=== PATIENT | female | born 1965 | race African-American/Black ===

== ENCOUNTER 2017-11-11 09:20 | Outpatient (CLI) | payer OTHER | END 2017-11-11 09:21 | disposition home or self-care (01) | LOC: BICMAMMO 09:20 | PROVIDERS: ATTEND Family Medicine | DX: Z12.31 Encounter for screening mammogram for malignant neoplasm of breast (principal) | CPT/HCPCS: 77067 ==

== ENCOUNTER 2017-11-13 07:17 | Outpatient (CLI) | payer OTHER | END 2017-11-13 07:18 | disposition home or self-care (01) | LOC: BICULT 07:17 | PROVIDERS: ATTEND Family Medicine | DX: R10.2 Pelvic and perineal pain (principal); Z90.710 Acquired absence of both cervix and uterus | CPT/HCPCS: 76856 ==

== ENCOUNTER 2018-11-07 11:15 | Emergency (ER) | payer OTHER | END 2018-11-07 12:20 | disposition home or self-care (01) | LOC: ERS 11:15 | DX: J06.9 Acute upper respiratory infection, unspecified (principal); F20.9 Schizophrenia, unspecified; F17.210 Nicotine dependence, cigarettes, uncomplicated; I10 Essential (primary) hypertension; Z79.899 Other long term (current) drug therapy | CPT/HCPCS: 99283 ==

== ENCOUNTER 2018-12-18 08:38 | Outpatient (CLI) | payer OTHER ==
--- NOTE | 2018-12-18 09:10 | MMO ---
Bilateral MAMMO Bilat Screen [facility]DI. CLINICAL HISTORY: Patient is 53 years old and is seen for screening. The patient has no family history of breast cancer. The patient has no personal history of cancer. VIEWS: The views performed were: bilateral craniocaudal and bilateral mediolateral oblique. FILMS COMPARED: The present examination has been compared to prior imaging studies performed at [facility] on 09/10/2016 and 11/11/2017, and at [facility] on 06/25/2013, 08/03/2014 and 09/09/2015. This study has been interpreted with the assistance of computer-aided detection. MAMMOGRAM FINDINGS: There are scattered fibroglandular densities. There is a stable nodule seen in the left breast. There are no suspicious masses, suspicious calcifications, or new areas of architectural distortion. IMPRESSION: THERE IS NO MAMMOGRAPHIC EVIDENCE OF MALIGNANCY. A ROUTINE FOLLOW-UP MAMMOGRAM IN 1 YEAR IS RECOMMENDED. ACR BI-RADS Category 2 - Benign finding MAMMOGRAPHY NOTE: 1. A negative mammogram report should not delay a biopsy if a dominant of clinically suspicious mass is present. 2. Approximately 10% to 15% of breast cancers are not detected by mammography. 3. Adenosis and dense breasts may obscure an underlying neoplasm.
== END 2018-12-18 08:39 | disposition home or self-care (01) ==
LOC: BICMAMMO 08:38
PROVIDERS: ATTEND Family Medicine
DX: Z12.31 Encounter for screening mammogram for malignant neoplasm of breast (principal)
CPT/HCPCS: 77067

== ENCOUNTER 2019-02-02 12:56 | Emergency (ER) | payer OTHER ==
[2019-02-02] MEDS ORDERED: Acetaminophen 325 MG TAB ONE (13:31)
--- NOTE | 2019-02-02 14:00 | RAD ---
Exam:3 views right shoulder HISTORY: Pain. Fall. COMPARISON: None FINDINGS: Glenohumeral joint spaces preserved. No fracture or dislocation. Visualized ribs are intact . There are degenerative changes in the acromioclavicular joint space. Small subacromial spur is noted. Sclerosis of the greater tuberosity is noted. IMPRESSION: 1. No fracture or dislocation. 2. Subacromial spur with sclerosis involving the greater tuberosity. MRI if there is concern for rota tor cuff impingement.
== END 2019-02-02 16:25 | disposition home or self-care (01) ==
LOC: ERS 12:56
DX: M25.511 Pain in right shoulder (principal); F17.210 Nicotine dependence, cigarettes, uncomplicated; F20.9 Schizophrenia, unspecified

== ENCOUNTER 2021-01-04 10:13 | Outpatient (CLI) | payer OTHER | END 2021-01-04 10:14 | disposition home or self-care (01) | LOC: BICMAMMO 10:13 | PROVIDERS: ATTEND Family Medicine | DX: Z12.31 Encounter for screening mammogram for malignant neoplasm of breast (principal) | CPT/HCPCS: 77067 ==

== ENCOUNTER 2021-05-25 09:15 | Emergency (ER) | payer OTHER ==
[2021-05-25 09:52] LABS: #Eosinphils 0.1 thou/uL (0.0-0.7); #Lymphocytes 1.7 thou/uL (1.20-3.40); #Monocytes 0.4 thou/uL (0.11-0.59); #Neutrophils 3.5 thou/uL (1.40-6.50); %Basophils 0.5 % (0.0-1.0); %Lymphocytes 30.7 % (21.0-51.0); %Monocytes 6.8 % (0.0-10.0); Hemoglobin 12.9 g/dL (12.0-16.0); Mean Corpuscular HGB CONC 33.1 g/dL (32.0-36.0); Mean Corpuscular Hemoglobin 29.3 pg (27.0-31.0); Mean Corpuscular Volume 88.4 fL (78.0-98.0); Mean Platelet Volume 7.5 fL (7.4-10.4); Platelet Count 297 thou/uL (130-400); RBC Distribution Width 13.3 % (11.5-14.5); White Blood Cell (WBC) Count 5.7 thou/uL (4.8-10.8)
[2021-05-25 10:06] LABS: Anion Gap 13 mmol/L (10-20); Carbon Dioxide 23 mmol/L (22-29); Chloride 105 mmol/L (98-107); Sodium 137 mmol/L (136-145)
[2021-05-25 10:07] LABS: ALT (SGPT) 13 U/L (8-55); AST (SGOT) 19 U/L (5-34); Albumin 3.9 g/dL (3.5-5.0); Alkaline Phosphatase 110 U/L (40-110); BUN (Urea Nitrogen) 14 mg/dL (9.8-20.1); Bilirubin, Total 0.4 mg/dL (0.2-1.2); Calc. Creatinine Clearance 0 mL/min (70-130); Calcium 9.9 mg/dL (7.8-10.44); Globulin 4.7 g/dL (2.4-3.5); Glucose 85 mg/dL (70-105); Protein, Total 8.6 g/dL (6.0-8.3)
== END 2021-05-25 11:27 | disposition home or self-care (01) ==
LOC: ERS 09:15
DX: R60.0 Localized edema (principal); I10 Essential (primary) hypertension; F17.210 Nicotine dependence, cigarettes, uncomplicated
CPT/HCPCS: 36415; 71045; 80053; 83880; 84484; 85025; 93005; 94760

== ENCOUNTER 2022-09-25 10:34 | Emergency (ER) | payer OTHER | END 2022-09-25 12:34 | disposition home or self-care (01) | LOC: ERS 10:34 | DX: J01.90 Acute sinusitis, unspecified (principal); I10 Essential (primary) hypertension; F17.210 Nicotine dependence, cigarettes, uncomplicated | CPT/HCPCS: 99283 ==

== ENCOUNTER 2023-03-18 09:31 | Emergency (ER) | payer OTHER ==
[2023-03-18] MEDS ORDERED: Furosemide 40 MG TAB ONE (11:09)
[2023-03-18 12:23] LABS: #Monocytes 0.5 thou/uL (0.11-0.59); #Neutrophils 4.8 thou/uL (1.40-6.50); %Basophils 0.1 % (0.0-1.0); %Eosinophils 0.4 % (0.0-10.0); %Lymphocytes 25.2 % (21.0-51.0); %Monocytes 6.5 % (0.0-10.0); %Neutrophils 67.5 % (42.0-75.0); Hematocrit 43.4 % (36.0-47.0); Hemoglobin 14.1 g/dL (12.0-16.0); Mean Corpuscular HGB CONC 32.5 g/dL (32.0-36.0); Mean Corpuscular Hemoglobin 30.1 pg (27.0-31.0); Mean Corpuscular Volume 92.7 fl (78.0-98.0); Mean Platelet Volume 9.1 fL (7.4-10.4); Platelet Count 357 10x3/uL (130-400); RBC Distribution Width 14.6 % (11.5-14.5); Red Blood Cell (RBC) Count 4.68 mill/uL (4.20-5.40); White Blood Cell (WBC) Count 7.1 10x3/uL (4.8-10.8)
[2023-03-18 12:44] LABS: ALT (SGPT) 13 U/L (8-55); AST (SGOT) 19 U/L (5-34); Albumin 4.1 g/dL (3.5-5.0); Alkaline Phosphatase 124 U/L (40-110); Anion Gap 14 mmol/L (10-20); BUN (Urea Nitrogen) 9 mg/dL (9.8-20.1); Bilirubin, Total 0.6 mg/dL (0.2-1.2); Calc. Creatinine Clearance 0 mL/min (70-130); Calcium 9.6 mg/dL (7.8-10.44); Carbon Dioxide 25 mmol/L (22-29); Chloride 103 mmol/L (98-107); Estimated GFR 66; Globulin 4.4 g/dL (2.4-3.5); Glucose 93 mg/dL (70-105); Potassium 3.7 mmol/L (3.5-5.1); Protein, Total 8.5 g/dL (6.0-8.3); Sodium 138 mmol/L (136-145)
[2023-03-18 12:49] LABS: Troponin I Less than 0.010 ng/mL (< 0.028)
== END 2023-03-18 13:10 | disposition home or self-care (01) ==
LOC: ERS 09:31
DX: I11.0 Hypertensive heart disease with heart failure (principal); I50.9 Heart failure, unspecified; E11.9 Type 2 diabetes mellitus without complications; Z87.891 Personal history of nicotine dependence; Z76.0 Encounter for issue of repeat prescription
CPT/HCPCS: 36415; 71045; 80053; 83880; 84484; 85025; 93005

== ENCOUNTER 2024-01-27 20:22 | Observation (INO) | payer OTHER ==
[2024-01-27 22:37] LABS: Bilirubin Negative (Negative); Blood, Urine Negative (Negative); CAUTI Indications for Culture Alt mental st,lethar; Clarity Clear (Clear); Glucose, Urine (Dipstick) Normal (Negative); Ketone, Urine Trace mg/dL (Negative); Leukocyte Negative Leu/uL (Negative); Nitrite Negative (Negative); Protein, Urine (Dipstick) 20 mg/dL (Neg-Trace); RBC/HPF 0-3 HPF (0-3); Specific Gravity, Urine 1.007 (1.002-1.036); Squamous Epithelial 0-3 HPF (0-3); Urobilinogen Normal mg/dL (Less than 2); pH, Urine 6.5 (5.0-9.0)
[2024-01-27 22:47] LABS: Bacteria/HPF 1+ HPF (None Seen)
[2024-01-27 22:48] LABS: Urine Culture Reflex No No
[2024-01-27 23:43] LABS: #Basophils Less than 0.03 10x3/uL (0.0-0.2); #Eosinphils Less than 0.03 10x3/uL (0.0-0.7); %Basophils 0.2 % (0.0-1.0); %Eosinophils 0.1 % (0.0-10.0); %Lymphocytes 16.4 % (21.0-51.0); %Monocytes 5.3 % (0.0-10.0); %Neutrophils 77.8 % (42.0-75.0); Hematocrit 39.6 % (36.0-47.0); Hemoglobin 13.1 g/dL (12.0-16.0); Mean Corpuscular HGB CONC 33.1 g/dL (32.0-36.0); Mean Corpuscular Hemoglobin 29.8 pg (27.0-31.0); Mean Corpuscular Volume 90.2 fL (78.0-98.0); Mean Platelet Volume 9.2 fL (7.4-10.4); Platelet Count 307 10x3/uL (130-400); RBC Distribution Width 13.8 % (11.5-14.5); Red Blood Cell (RBC) Count 4.39 mill/uL (4.20-5.40)
[2024-01-28 00:02] LABS: ALT (SGPT) 15 U/L (8-55); AST (SGOT) 20 U/L (5-34); Albumin 3.4 g/dL (3.5-5.0); Alkaline Phosphatase 94 U/L (40-110); Anion Gap 15 mmol/L (10-20); BUN (Urea Nitrogen) 13 mg/dL (9.8-20.1); Bilirubin, Total 0.6 mg/dL (0.2-1.2); CK (CPK) 234 U/L (29-168); Calc. Creatinine Clearance 0 mL/min (70-130); Calcium 9.1 mg/dL (7.8-10.44); Carbon Dioxide 25 mmol/L (22-29); Chloride 106 mmol/L (98-107); Estimated GFR 52; Globulin 4.4 g/dL (2.4-3.5); Glucose 105 mg/dL (70-105); Magnesium 1.6 mg/dL (1.6-2.6); Potassium 2.6 mmol/L (3.5-5.1); Protein, Total 7.8 g/dL (6.0-8.3); Sodium 143 mmol/L (136-145); Troponin I 0.013 ng/mL (< 0.028)
[2024-01-28] MEDS ORDERED: Potassium Chloride 20 MEQ (100 mL) BAG ONE (01:10)
[2024-01-28] MEDS ORDERED: Potassium Chloride 20 MEQ TAB ONE (01:10)
[2024-01-28] MEDS ORDERED: Ondansetron ODT 4 MG TAB SL PRN (02:00)
[2024-01-28] MEDS ORDERED: Ondansetron PF 4 MG/2 ML Vial IVP PRN (02:00)
[2024-01-28 03:38] LABS: Amphetamine Not Detected (NotDetected); Barbiturates Screen Not Detected (NotDetected); Benzodiazepine Screen Not Detected (NotDetected); Cocaine Metabolite Screen Not Detected (NotDetected); Methadone Not Detected (NotDetected); Methamphetamine Not Detected (NotDetected); Opiate Screen Not Detected (NotDetected); Oxycodone Screen Not Detected (NotDetected); Phencyclidine (PCP) Not Detected (NotDetected); THC/Cannabinoid Screen Not Detected (NotDetected); Tricyclic Screen Not Detected (NotDetected)
[2024-01-28] MEDS: Lactated Ringer's 1,000 ML IV SCH (03:40)
[2024-01-28] MEDS ORDERED: Electrolyte Replacement Protocol 1 EACH FS SCH (03:45)
[2024-01-28] MEDS ORDERED: Magnesium 2 GM/50 ML BAG (IN WATER) ONE (03:53)
[2024-01-28] MEDS ORDERED: Losartan 25 MG TAB ONE (03:53)
[2024-01-28] MEDS: Losartan 25 MG TAB PO SCH ×2 (04:09→08:52)
[2024-01-28] MEDS: Magnesium 2 GM/50 ML(in water) 2 GM in Premix 1 BAG IVPB SCH (04:09)
[2024-01-28 05:18] VITALS: BMI 36.7
[2024-01-28] MEDS: Thiamine HCl 200 MG/2 ML VIAL SLOW IVP SCH (05:32)
[2024-01-28 06:24] LABS: #Basophils Less than 0.03 10x3/uL (0.0-0.2); %Basophils 0.2 % (0.0-1.0); %Eosinophils 0.6 % (0.0-10.0); %Lymphocytes 31.9 % (21.0-51.0); %Monocytes 8.1 % (0.0-10.0); Hematocrit 36.6 % (36.0-47.0); Hemoglobin 12.1 g/dL (12.0-16.0); Mean Corpuscular HGB CONC 33.1 g/dL (32.0-36.0); Mean Corpuscular Hemoglobin 29.7 pg (27.0-31.0); Mean Corpuscular Volume 89.7 fL (78.0-98.0); Mean Platelet Volume 9.4 fL (7.4-10.4); Platelet Count 308 10x3/uL (130-400); RBC Distribution Width 13.7 % (11.5-14.5); Red Blood Cell (RBC) Count 4.08 mill/uL (4.20-5.40)
[2024-01-28 06:39] LABS: Anion Gap 12 mmol/L (10-20); BUN (Urea Nitrogen) 9 mg/dL (9.8-20.1); Calc. Creatinine Clearance 103 mL/min (70-130); Calcium 8.8 mg/dL (7.8-10.44); Carbon Dioxide 25 mmol/L (22-29); Chloride 108 mmol/L (98-107); Estimated GFR 74; Glucose 116 mg/dL (70-105); Potassium 2.8 mmol/L (3.5-5.1); Sodium 142 mmol/L (136-145)
[2024-01-28] MEDS: Aripiprazole 10 MG TAB PO SCH (08:51)
[2024-01-28] MEDS: Potassium Chloride 20 MEQ TAB PO SCH (08:51)
[2024-01-28] MEDS: Folic Acid 1 MG TAB PO SCH (08:51)
[2024-01-28] MEDS: Potassium Chloride 20 MEQ in Premix 1 BAG IVPB SCH (08:51)
[2024-01-28] MEDS: Multivit, Therapeutic 1 TAB PO SCH (08:52)
[2024-01-28] MEDS: Acetaminophen 325 MG TAB PO PRN (10:40)
[2024-01-28 11:13] VITALS: TEMP 98.1
[2024-01-28 15:51] VITALS: BP 135/65
[2024-01-28 16:22] LABS: Anion Gap 13 mmol/L (10-20); BUN (Urea Nitrogen) 12 mg/dL (9.8-20.1); Calc. Creatinine Clearance 101 mL/min (70-130); Calcium 9.4 mg/dL (7.8-10.44); Carbon Dioxide 25 mmol/L (22-29); Chloride 107 mmol/L (98-107); Estimated GFR 72; Glucose 110 mg/dL (70-105); Potassium 3.6 mmol/L (3.5-5.1); Sodium 141 mmol/L (136-145)
[2024-01-31] MEDS ORDERED: Thiamine 100 MG TAB PO SCH (09:00)
== END 2024-01-28 18:35 | disposition home or self-care (01) ==
LOC: ERS 20:22 → ERHOLD 01-28 01:56 → 2NO 01-28 04:50
PROVIDERS: ADMIT Family Medicine; ATTEND Family Medicine
DX: E86.0 Dehydration (principal); R55 Syncope and collapse; N17.9 Acute kidney failure, unspecified; E87.6 Hypokalemia; E83.42 Hypomagnesemia; I10 Essential (primary) hypertension; F20.9 Schizophrenia, unspecified
CPT/HCPCS: 36415; 36416; 71045; 80048; 80053; 80306; 81001; 82550; 83605; 83735; 84484; 85025; 93005; 96366; 96367; 96374; 96375; G0378; J3411; J3475; J3480; J7120

== ENCOUNTER 2024-02-11 21:33 | Emergency (ER) | payer OTHER ==
[2024-02-11 22:23] LABS: #Basophils Less than 0.03 10x3/uL (0.0-0.2); %Basophils 0.3 % (0.0-1.0); %Eosinophils 0.5 % (0.0-10.0); %Monocytes 6.5 % (0.0-10.0); %Neutrophils 68.4 % (42.0-75.0); Hematocrit 42.7 % (36.0-47.0); Hemoglobin 14.2 g/dL (12.0-16.0); Mean Corpuscular HGB CONC 33.3 g/dL (32.0-36.0); Mean Corpuscular Hemoglobin 29.9 pg (27.0-31.0); Mean Corpuscular Volume 89.9 fL (78.0-98.0); Mean Platelet Volume 8.9 fL (7.4-10.4); Platelet Count 214 10x3/uL (130-400); RBC Distribution Width 14.3 % (11.5-14.5); Red Blood Cell (RBC) Count 4.75 mill/uL (4.20-5.40)
[2024-02-11 22:43] LABS: ALT (SGPT) 11 U/L (8-55); AST (SGOT) 16 U/L (5-34); Albumin 3.1 g/dL (3.5-5.0); Alkaline Phosphatase 105 U/L (40-110); Anion Gap 15 mmol/L (10-20); BUN (Urea Nitrogen) 17 mg/dL (9.8-20.1); Bilirubin, Total 0.5 mg/dL (0.2-1.2); Calc. Creatinine Clearance 0 mL/min (70-130); Carbon Dioxide 18 mmol/L (22-29); Chloride 112 mmol/L (98-107); Estimated GFR 70; Globulin 4.1 g/dL (2.4-3.5); Glucose 79 mg/dL (70-105); Lipase 16 U/L (8-78); Potassium 3.5 mmol/L (3.5-5.1); Protein, Total 7.2 g/dL (6.0-8.3); Sodium 141 mmol/L (136-145)
[2024-02-11 22:46] LABS: Troponin I 0.027 ng/mL (< 0.028)
[2024-02-12] MEDS ORDERED: Acetaminophen 500 MG TAB ONE (01:16)
== END 2024-02-12 01:18 | disposition home or self-care (01) ==
LOC: ERS 21:33
DX: R00.2 Palpitations (principal); R11.2 Nausea with vomiting, unspecified; I10 Essential (primary) hypertension; Z87.891 Personal history of nicotine dependence
CPT/HCPCS: 36415; 71045; 80053; 83690; 83880; 84443; 84484; 85025; 93005